=== PATIENT | female | born 1990 | race Caucasian/White ===

== ENCOUNTER → 2021-10-08 | Outpatient (CLI) | payer OTHER ==
[~2021-10-08] MED LIST: LEVO25TA4 PO; OXYC-325 PO
== END ==
LOC: LAB 10:26
PROVIDERS: ATTEND Surgery
DX: Z01.812 Encounter for preprocedural laboratory examination (principal); Z20.822 Contact with and (suspected) exposure to COVID-19
CPT/HCPCS: U0003

== ENCOUNTER 2021-10-10 07:11 | Day surgery (SDC) | payer OTHER ==
[~2021-10-10] VITALS: Ht 154.9 cm; Wt 71.5 kg
[~2021-10-10 07:11] MED LIST changes: +BUPIVACAINE-EPI 0.5% 30 ML VIAL KIT. ONE; +HYDROmorphone 2 MG/ML INJ. IVP PRN; +IV RINGERS,LACTATED 1000ML 1,000 ML IV SCH; -LEVO25TA4 PO; -OXYC-325 PO; +ceFAZolin SODIUM IV Push 1 GM VIAL. IVP PRN; +fentaNYL PF VIAL 100 MCG/2 ML VIAL IVP PRN
[2021-10-10] MEDS ORDERED: SCOPOLAMINE 1.5MG PATCH. TD ONE (07:45)
[2021-10-10] MEDS ORDERED: LEVO25TA4 PO (07:58)
[2021-10-10] MEDS ORDERED: diphenhydrAMINE 50 MG/ML VIAL ONE (07:58)
[2021-10-10] MEDS ORDERED: LIDOCAINE 2% PF 5 ML VIAL. ONE ×2 (07:58)
[2021-10-10] MEDS ORDERED: ONDANSETRON PF 4 MG/2 ML VIAL. ONE (07:58)
[2021-10-10] MEDS ORDERED: DEXAMETHASONE SOD PHOS 20 MG/5 ML VIAL. ONE (07:58)
[2021-10-10] MEDS ORDERED: PROPOFOL 10 MG/ML (20ML) VIAL. IV ONE ×2 (07:58→09:04)
[2021-10-10] MEDS ORDERED: KETOROLAC 30 MG/ML VIAL. ONE (07:58)
[2021-10-10] MEDS ORDERED: ACETAMINOPHEN 500 MG TABLET PO PRN (08:00)
[2021-10-10] MEDS ORDERED: ROCURONIUM 50 MG/5 ML VIAL. ONE (08:04)
[2021-10-10] MEDS ORDERED: KETAMINE HCL IN NACL, ISO-OSM 50 MG/5 ML SYRINGE ONE (08:06)
[2021-10-10] MEDS ORDERED: MIDAZOLAM HCL/PF 2 MG/2 ML VIAL. ONE (08:06)
[2021-10-10] MEDS ORDERED: SUGAMMADEX SODIUM 200 MG/2 ML VIAL. IVP ONE (08:30)
[2021-10-10] MEDS ORDERED: PROPOFOL 50 ML IV ONE (09:00)
--- NOTE | 2021-10-10 09:11 | PDOC4 ---
Operative Note Operative Note Date: October 102021 at 9:09 AM Preoperative diagnosis: Chronic cholecystitis cholelithiasis Postoperative diagnosis: Same Procedure: Laparoscopic cholecystectomy fluorescein cholangiography Surgeon: Kojo Specimen: Gallbladder Lining Finisher: None Dictation: Patient is a 30-year-old female with right upper quadrant abdominal pain ultrasound showing gallstones. Procedure laparoscopic cholecystectomy was explained to the patient detail was benefits were also discussed including bleeding infection injury to intra-abdominal contents possible necessitating further open operations alternatives this procedure also discussed with the patient who seemed to understand and gave a verbal and written consent to have procedure performed. Patient was taken to the operating room placed in the supine position general anesthesia was initiated once patient was sleeping intubated her abdomen was prepped and draped usual sterile fashion using ChloraPrep. Area just below the umbilicus was injected quarter percent Marcaine with epinephrine incision was made 11 blade scalpel and a varies needle was placed within the abdomen creating pneumoperitoneum once this was complete 11 mm port was placed in a 5 mm camera was placed within the abdomen which was inspected no other abnormalities were noted 5 mm port was placed in the epigastrium a 5 mm port was placed in the right midabdomen a 5 mm port was placed in the right lateral abdomen all under direct visualization. The dome of the gallbladder is grasped retracted cephalad the infundibulum of the gallbladder is grasped retracted laterally exposing the triangle adherent tissues of the triangle were taken down exposing the cystic duct and cystic artery fluorescing cholangiography was performed which showed good dye within the cystic duct to the common bile duct with no evidence of obstruction. The cystic duct was doubly clipped and transected the cystic artery was doubly clipped and transected the gallbladder was taken off the liver with hook electrocautery placed in Endo Catch bag and removed the umbilicus right upper quadrant was irrigated and suctioned dry hemostasis deemed to appropriate the pneumoperitoneum was reduced all ports were removed the fascial defect at the umbilicus was closed with [id number] 0 Vicryl suture and the skin was reapproximated all port sites for subcuticular Monocryl Mastisol Steri-Strips and island dressings were applied. Patient was awakened extubated operating room taken to recovery in stable condition all sponge instrument needle counts listed as correct estimated blood loss 10 mL ARTHUR OH MD Oct 10, 2021 09:11
[2021-10-10] MEDS ORDERED: OXYC-325 PO (09:13)
--- NOTE | 2021-10-10 09:15 | DISCH ---
DISCHARGE INSTRUCTIONS Condition on Discharge Condition on Discharge: Stable Activity After Discharge Activity Instructions for Disc: Avoid exertion Other activity instructions: No lifting more than 20 pounds for 2-week Diet after Discharge Diet after Discharge: Low Fat Wound Incision Care Other wound/incision instructi: May shower in 24 hours Contacting the after DC Call your doctor for: If your condition worsens Follow-Up Follow up with: Dr. Oh in 2-week ARTHUR OH MD Oct 10, 2021 09:14
[2021-10-10] MEDS ORDERED: MORPHINE SULFATE 2 MG/ML INJ. ONE (09:28)
[2021-10-10] MEDS ORDERED: fentaNYL PF VIAL 100 MCG/2 ML VIAL ONE (09:28)
[2021-10-10] MEDS ORDERED: oxyCODONE/APAP 5/325 1 TAB TABLET PO ONE (09:30)
[2021-10-10] MEDS: fentaNYL PF VIAL 100 MCG/2 ML VIAL IVP PRN ×2 (09:33→09:43)
[2021-10-10] MEDS: MORPHINE SULFATE 2 MG/ML INJ. IVP PRN ×2 (09:34→09:44)
[2021-10-10] MEDS ORDERED: PROCHLORPERAZINE 10 MG/2 ML VIAL. ONE (09:34)
[2021-10-10] MEDS: PROCHLORPERAZINE 10 MG/2 ML VIAL. IVP PRN ×2 (09:36→09:44)
[2021-10-10 10:35] VITALS: BP 119/79
--- NOTE | 2021-10-13 17:32 | PATHOLOGY ---
[facility] Accession Number: [id number] . 01 Material submitted: . gallbladder - GALLBLADDER AND CONTENTS . 01 Clinical history: . CHRONIC CHOLECYSTITIS LAP JOSE ELIAS . 02 Diagnosis: Gallbladder, laparoscopic cholecystectomy: - Cholelithiasis. - Chronic cholecystitis. ([facility]; 10/13/2021) [facility] 10/13/2021 1350 Local . 02 Comment: There is no evidence of malignancy. ([facility]; 10/13/2021) . 02 Electronically signed: . Xavier Ron MD, Pathologist NPI- [id number] . 01 Gross description: . Fixative: Formalin Labeled: Gallbladder Specimen received: Intact Dimensions: 6.6 x 2.7 x 2.4 cm Lymph node: Not identified Serosa: Arguello-king, smooth and glistening Calculi: A single green stone (0.5 x 0.5 x 0.4 cm) Mucosa: Green and velvety without patel stippling Average wall thickness: 0.2 cm Abnormalities: None A1: Gallbladder, represented ([facility]; 10/10/2021) DKA/DKA 10/10/2021 1623 Local . 02 Pathologist provided ICD-10: K80.10 . 02 CPT . 324665 Specimen Comment: A courtesy copy of this report has been sent to [phone], [phone] Specimen Comment: [id number] Specimen Comment: Report sent to / DR CUETO Performed at: 01 [facility] [address], [place], [place] [id number] MD Zain Winchester MD Phone: [phone] Performed at: 02 [facility] [address] [place], [place] [id number] MD Xavier Ron MD Phone: [phone]
== END 2021-10-10 11:15 | disposition home or self-care (01) ==
LOC: SURG 07:11
PROVIDERS: ATTEND Surgery
DX: K80.10 Calculus of gallbladder with chronic cholecystitis without obstruction (principal); E03.9 Hypothyroidism, unspecified; Z79.899 Other long term (current) drug therapy; Z98.890 Other specified postprocedural states; Z72.89 Other problems related to lifestyle
CPT/HCPCS: 47563; 81025; A4213; A4364; A4930; A6219; A6257; J0690; J0780; J1100; J1200; J1885; J2250; J2270; J2405; J2704; J3010; J3490; A4222; A4657